=== PATIENT | female | born 1960 | race Two or more races ===

== ENCOUNTER 2018-02-02 22:37 | Emergency (ER) | payer SELFPAY ==
[~2018-02-02] VITALS: Wt 46.0 kg
[2018-02-02 23:16] LABS: HEMATOCRIT 39.6 % (36.0-46.0); HEMOGLOBIN 13.8 G/DL (11.9-15.5); MCH 28.6 PG (29.0-34.0); MCHC 34.8 G/DL (30.0-36.0); PLATELET COUNT 449 K/uL (156-360); RBC DIS.WIDTH-CV 11.9 % (11.8-14.6); RBC DIS.WIDTH-SD 35.3 % (39-53); RED BLOOD COUNT 4.83 M/uL (3.80-5.20); WHITE BLOOD COUNT 9.9 K/uL (4.1-10.2)
[2018-02-02 23:37] LABS: CHLORIDE 93 mEq/L (99-109); POTASSIUM 4.3 mEq/L (3.7-5.4); SODIUM 136 mEq/L (136-147)
[2018-02-02 23:39] LABS: GLUCOSE 393 mg/dL (70-99)
[2018-02-02 23:43] LABS: CREATININE 1.1 mg/dL (0.6-1.3)
[2018-02-02 23:44] LABS: UREA NITROGEN (BUN) 45 mg/dL (9-23)
[2018-02-02 23:54] LABS: GFR ESTIMATE (CALCULATED) 55 mL/min/
[2018-02-03 00:34] LABS: ALBUMIN 4.2 g/dL (3.2-4.8)
[2018-02-03 00:37] LABS: TOTAL PROTEIN 8.4 g/dL (6.4-8.3)
[2018-02-03 00:39] LABS: TOTAL BILIRUBIN 0.4 mg/dL (0.0-1.0)
[2018-02-03 00:40] LABS: ALKALINE PHOSPHATASE 102 IU/L (3-129)
[2018-02-03 00:42] LABS: AST (GOT) 11 IU/L (2-34)
[2018-02-03 00:43] LABS: ALT (GPT) 11 IU/L (3-49)
[2018-02-03 01:38] LABS: CARBON DIOXIDE (BICARBONATE) 20.6 MEQ/L (20-31)
[2018-02-03 02:52] LABS: CHLORIDE 98 MEQ/L (99-109); POTASSIUM 3.9 MEQ/L (3.7-5.4); SODIUM 136 MEQ/L (136-147)
[2018-02-03 02:57] LABS: CREATININE 0.7 MG/DL (0.6-1.3); GFR ESTIMATE (CALCULATED) > 59 mL/min/; GLUCOSE 316 mg/dL (70-99); UREA NITROGEN (BUN) 39 mg/dL (9-23)
[2018-02-03 06:08] LABS: APPEARANCE CLEAR ((CLEAR)); BILIRUBIN NEGATIVE; BLOOD SMALL; COLOR STRAW ((YELLOW)); GLUCOSE (STRIP) >=500; KETONES 80; LEUKOCYTES NEGATIVE; NITRITE NEGATIVE; PROTEIN (STRIP) >=500; UROBILINOGEN 0.2 MG/DL (0.2-1.0)
[2018-02-03 06:16] LABS: BACTERIA NONE SEEN /HPF; EPITHELIAL CELLS RARE /HPF; MUCUS TRACE /LPF; UCUL ADDED? NO; WHITE BLOOD CELLS 0-5 /HPF (0-5)
[2018-02-03 06:17] LABS: CHLORIDE 102 mEq/L (99-109); SODIUM 137 mEq/L (136-147)
[2018-02-03 06:19] LABS: GLUCOSE 221 mg/dL (70-99)
[2018-02-03 06:23] LABS: CREATININE 0.7 mg/dL (0.6-1.3); GFR ESTIMATE (CALCULATED) > 59 mL/min/
[2018-02-03 06:24] LABS: UREA NITROGEN (BUN) 29 mg/dL (9-23)
[2018-02-03] MEDS ORDERED: ZOFRAN ODT4 MG PO (07:07)
[2018-02-03 08:15] VITALS: BP 178/83
== END 2018-02-03 08:20 | disposition left against medical advice (07) ==
LOC: EME 22:37
PROVIDERS: Physician Assistant
DX: E11.10 Type 2 diabetes mellitus with ketoacidosis without coma (principal); R11.10 Vomiting, unspecified; E86.0 Dehydration
CPT/HCPCS: 80048; 80048 91; 80053; 81003; 82010; 82803; 82948; 83605; 85027; 87040; 99281; 99285; J0360; J2405; J3010; J7030; J7120; S0028